=== PATIENT | male | born 1950 | race Caucasian/White ===

== ENCOUNTER 2020-05-06 06:54 | Observation (INO) | payer MEDICARE ==
[~2020-05-06] VITALS: Ht 190.5 cm; Wt 89.3 kg
--- NOTE | 2020-05-06 07:12 | NUR ---
BIB EMS FROM [place] FOR 5 MM KIDNEY STONE. NO OTHER COMPLAINTS, TREATED W PAIN MED MORPHINE PRIOR TO ARRIVAL. DENIES PAIN AT THIS TIME. DENIES CP, SOB, COUGH FEVER. VSS.
--- NOTE | 2020-05-06 08:54 | NUR ---
TASK RN: REPORT TO [facility]. ALL QUESTIONS ANSWERED.
[2020-05-06 09:18] VITALS: BP 179/73
[2020-05-06 09:25] VITALS: BP 179/73
[2020-05-06] MEDS ORDERED: ONDANSETRON 2MG/ML, 2ML IVPush PRN ×2 (11:00→15:30)
[2020-05-06] MEDS ORDERED: morphine SULFATE 10 MG/ML, 1ML IVPush PRN (11:00)
[2020-05-06] MEDS ORDERED: OXYcodone/APAP 5/325MG TABLET PO PRN (11:00)
[2020-05-06] MEDS ORDERED: ACETAMINOPHEN 325 MG TABLET PO PRN ×2 (11:00→16:00)
[2020-05-06] MEDS ORDERED: hydrALAzine 20 MG/ML, 1ML IVPush PRN (11:00)
[2020-05-06] MEDS ORDERED: PROMETHAZINE 25 MG/ML, 1ML IM PRN (11:00)
[2020-05-06] MEDS ORDERED: LABETALOL 5MG/ML, 20ML IVPush PRN (11:00)
[2020-05-06] MEDS ORDERED: TAMSULOSIN 0.4 MG CAP.ER.24H PO SCH ×2 (11:00→16:00)
[2020-05-06 11:57] LABS: BASOPHILS # (AUTO) 0.01 x10^3/uL (0-0.1); BASOPHILS % (AUTO) 0 % (0-1); EOSINOPHILS # (AUTO) 0.02 x10^3/uL (0-0.4); EOSINOPHILS % (AUTO) 0 % (1-7); LYMPHOCYTES # (AUTO) 0.88 x10^3/uL (1-3.4); LYMPHOCYTES % (AUTO) 13 % (22-44); MD NO; MEAN CORPUSCULAR HEMOGLOBIN 31.1 pg (27.5-34.5); MEAN CORPUSCULAR HGB CONC 33.5 g/dL (33.2-36.2); MEAN CORPUSCULAR VOLUME 92.8 fL (81-97); MEAN PLATELET VOLUME 8.9 fL (7.4-10.4); MONOCYTES # (AUTO) 0.42 x10^3/uL (0.2-0.8); MONOCYTES % (AUTO) 6 % (2-9); NEUTROPHILS # (AUTO) 5.59 x10^3/uL (1.8-6.8); NEUTROPHILS % (AUTO) 81 % (42-75); PLATELET COUNT 202 x10^3/uL (130-400); RED BLOOD COUNT 4.13 x10^6/uL (4.38-5.82); RED CELL DISTRIBUTION WIDTH 13.1 % (9.4-14.8)
[2020-05-06] MEDS ORDERED: CHLORHEXIDINE 15 ML UDC ONE (12:24)
[2020-05-06] MEDS ORDERED: CHLORHEXIDINE 15 ML UDC MM ONE (12:30)
[2020-05-06] MEDS ORDERED: FENTANYL PF 250 MCG/5ML ONE (12:50)
[2020-05-06] MEDS ORDERED: MIDAZOLAM 1 MG/ML, 2ML ONE (12:50)
[2020-05-06] MEDS ORDERED: DEXAMETHASONE 4 MG/ML, 1ML ONE (12:51)
[2020-05-06] MEDS ORDERED: PROPOFOL 10 MG/ML, 20ML ONE (12:51)
[2020-05-06] MEDS ORDERED: SUCCINYLCHOLINE 20 MG/ML, 10ML ONE (12:51)
[2020-05-06] MEDS ORDERED: ROCURONIUM 10MG/ML,5ML ONE (12:51)
[2020-05-06] MEDS ORDERED: ONDANSETRON 2MG/ML, 2ML ONE (13:00)
[2020-05-06] MEDS ORDERED: CEFAZOLIN 1,000 MG ONE ×2 (13:00→13:10)
[2020-05-06 13:04] VITALS: BP 186/75
[2020-05-06] MEDS ORDERED: GLYCOPYRROLATE 0.2MG/1ML, 5ML ONE (13:16)
[2020-05-06] MEDS ORDERED: hydrALAzine 20 MG/ML, 1ML ONE (14:56)
[2020-05-06] MEDS ORDERED: KETOROLAC 30 MG/1 ML IVPush PRN (15:30)
[2020-05-06] MEDS ORDERED: MEPERIDINE/PF 25MG/0.5ML IVPush PRN (15:30)
[2020-05-06] MEDS ORDERED: hydrALAzine 20 MG/ML, 1ML IV PRN (15:30)
[2020-05-06] MEDS ORDERED: OXYcodone 5 MG/5 ML ORAL.SOL UDC PO PRN (15:30)
[2020-05-06] MEDS ORDERED: FENTANYL PF 100 MCG/2ML IV PRN (15:30)
[2020-05-06] MEDS ORDERED: HYDROmorphone 1 MG/ML, 1ML INJ IVPush PRN (15:30)
[2020-05-06] MEDS: TAMSULOSIN 0.4 MG CAP.ER.24H PO SCH (15:54)
[2020-05-06] MEDS: SODIUM CHLORIDE 0.9% 1,000 ML IV SCH (15:55)
[2020-05-06] MEDS: LACTATED RINGERS 1,000 ML IV SCH (15:55)
[2020-05-06] MEDS ORDERED: HYDROcodone/APAP 5/325 TABLET PO PRN (16:00)
[2020-05-06] MEDS ORDERED: ONDANSETRON 2MG/ML, 2ML IV PRN (16:00)
[2020-05-06 20:04] VITALS: BP 134/74
[2020-05-07 00:31] VITALS: BP 131/65
[2020-05-07] MEDS: LACTATED RINGERS 1,000 ML IV SCH (02:16)
[2020-05-07 04:07] LABS: BASOPHILS # (AUTO) 0.01 x10^3/uL (0-0.1); BASOPHILS % (AUTO) 0 % (0-1); EOSINOPHILS % (AUTO) 0 % (1-7); LYMPHOCYTES # (AUTO) 0.68 x10^3/uL (1-3.4); LYMPHOCYTES % (AUTO) 12 % (22-44); MD NO; MEAN CORPUSCULAR HEMOGLOBIN 30.8 pg (27.5-34.5); MEAN CORPUSCULAR HGB CONC 33.1 g/dL (33.2-36.2); MEAN CORPUSCULAR VOLUME 93.1 fL (81-97); MONOCYTES # (AUTO) 0.37 x10^3/uL (0.2-0.8); MONOCYTES % (AUTO) 6 % (2-9); NEUTROPHILS # (AUTO) 4.85 x10^3/uL (1.8-6.8); NEUTROPHILS % (AUTO) 82 % (42-75); PLATELET COUNT 182 x10^3/uL (130-400); RED BLOOD COUNT 3.73 x10^6/uL (4.38-5.82); RED CELL DISTRIBUTION WIDTH 13.4 % (9.4-14.8)
[2020-05-07 04:14] LABS: ALANINE AMINOTRANSFERASE 13 U/L (12-78); ALBUMIN 3.1 g/dL (3.4-5.0); ANION GAP 5 mmol/L (5-15); CALCIUM 8.8 mg/dL (8.5-10.1); CHLORIDE 112 mmol/L (98-107); CREATININE 1.42 mg/dL (0.7-1.3)
[2020-05-07 04:16] LABS: ALKALINE PHOSPHATASE 58 U/L (45-117); BILIRUBIN,TOTAL 0.9 mg/dL (0.2-1.0); TOTAL PROTEIN 5.8 g/dL (6.4-8.2)
[2020-05-07 04:38] VITALS: BP 138/81
[2020-05-07] MEDS: SODIUM CHLORIDE 0.9% 1,000 ML IV SCH (06:00)
[2020-05-07 06:13] LABS: MICROSCOPIC INDICATED
[2020-05-07 07:44] VITALS: BP 128/57
[2020-05-07] MEDS: TAMSULOSIN 0.4 MG CAP.ER.24H PO SCH (09:24)
[2020-05-07] MEDS ORDERED: CEFDINIR 300 MG CAPSULE PO SCH (09:30)
[2020-05-07] MEDS ORDERED: TAMS-11 PO (10:07)
[2020-05-07] MEDS ORDERED: CEFD300C37 PO (10:07)
[2020-05-07] MEDS ORDERED: ACET325T26 PO (10:07)
== END 2020-05-07 11:56 | disposition home or self-care (01) ==
LOC: ED 07:39 → INTOOBSV 08:19 → 4NE 08:19 → ED 09:31
PROVIDERS: ADMIT Internal Medicine; ATTEND Internal Medicine
DX: N13.2 Hydronephrosis with renal and ureteral calculous obstruction (principal); Z20.828 Contact with and (suspected) exposure to other viral communicable diseases; D64.9 Anemia, unspecified; Z79.899 Other long term (current) drug therapy
CPT/HCPCS: 36415; 52356; 74018; 76000; 80053; 81001; 82360; 85025; 87086; 87635; 88300; 93005; 96360; 96361; 99285; C1769; C2617; G0378; J0330; J0360; J0690; J1100; J2250; J2405; J2704; J3010; J7120